=== PATIENT | female | born 1980 ===

== ENCOUNTER 2017-09-12 09:07 | Emergency (ER) | payer OTHER ==
[2017-09-12 09:59] VITALS: BMI 23.1
[2017-09-12 10:02] VITALS: RESP 16; O2SAT 100
[2017-09-12] MEDS ORDERED: Sodium Chloride 0.9% 1,000 ML IV STA (10:23)
[2017-09-12 10:59] LABS: ALT/SGPT 33 U/L (9-52); AST/SGOT 18 U/L (14-36); BLOOD UREA NITROGEN 10 mg/dl (7-17); GFR AFRICAN-AMERICAN > 60; GFR NON-AFRICAN AMERICAN > 60
[2017-09-12 11:05] LABS: BASO % 0.4 % (0.0-2.0); EOS # 0.1 K/uL (0.0-0.7); EOS % 1.7 % (0.0-4.0); HEMOGLOBIN 13.5 g/dL (12.0-16.0); LYMPH # 1.1 K/uL (1.0-4.3); LYMPH % 27.4 % (20.0-40.0); MEAN CELL VOLUME 88.3 fl (81.0-99.0); MEAN CORPUSCULAR HEMOGLOBIN 30.1 pg (27.0-31.0); MEAN CORPUSCULAR HGB CONC 34.1 g/dL (33.0-37.0); MEAN PLATELET VOLUME 7.4 fl (7.2-11.7); MONO # 0.5 K/uL (0.0-0.8); MONO % 11.5 % (0.0-10.0); NEUT # 2.4 K/uL (1.8-7.0); NRBC % 0.1 % (0.0-0.0); RBC 4.47 Mil/uL (3.80-5.20); RED CELL DISTRIBUTION WIDTH 13.2 % (11.5-14.5); WHITE BLOOD COUNT 4.1 K/uL (4.8-10.8)
[2017-09-12 11:35] LABS: SQUAMOUS EPITHIAL 5 /hpf (0-5); URINE BILIRUBIN NEGATIVE (NEGATIVE); URINE BLOOD SMALL (NEGATIVE); URINE CLARITY SLIGHTY-CLOUDY (Clear); URINE COLOR YELLOW (YELLOW); URINE GLUCOSE (UA) NEG (Normal); URINE LEUKOCYTE ESTERASE NEG Leu/uL (Negative); URINE PROTEIN NEGATIVE (NEGATIVE); URINE UROBILINOGEN 0.2-1.0 mg/dL (0.2-1.0)
[2017-09-12] MEDS ORDERED: Oxycodone/Acetaminophen 5/325 mg Tab PO STA (13:47)
[2017-09-12] MEDS ORDERED: Oxycodone/Acetaminophen 5/325 mg Tab ONE (13:52)
--- NOTE | 2017-09-12 14:12 | US ---
HISTORY: sudden onset L pelvic pain r/o torsion ; LMP 09/10/2017. COMPARISON: None available. TECHNIQUE: Transabdominal and transvaginal pelvic ultrasound was performed with longitudinal and transverse images submitted for interpretation. FINDINGS: UTERUS: Measures 4.8 x 4.6 x 5.5 cm. Uterus is anteverted without focal myometrial mass appreciable. ENDOMETRIUM: Measures 6.1 mm in diameter. Fluid is identified within the endometrial cavity relatively diffusely mid and a or minimal volume overall. No definitive cyst or solid mass is seen related to the endometrium. CERVIX: No cervical abnormality identified. RIGHT OVARY: Measures 2.3 x 1.4 x 2.5 cm. No solid mass. Normal flow. LEFT OVARY: Measures 4.3 x 3.3 x 4.3 cm. No solid mass. Normal flow. A moderate simple cyst is avascular measuring 2.9 x 2.2 x 3.7 cm with a few small follicles otherwise seen at the left ovary. FREE FLUID: No significant free fluid noted. OTHER FINDINGS: None. IMPRESSION: Fluid is seen in the endometrial cavity suspicious for potential chronic hemorrhage or other sonolucent fluid. Endometrial cavity is otherwise unremarkable. No myometrial mass. 3.7 cm simple cyst left ovary. Follow-up transvaginal probe also recommended in 48 weeks for follow-up. No sonographic pattern to suggest torsion.
--- NOTE | 2017-09-12 14:16 | ED PDOC ---
HPI: Abdomen Time Seen by Provider: 09/12/17 09:22 Chief Complaint (Nursing): Abdominal Pain Chief Complaint (Provider): pelvic pain History/Exam Limitations: no limitations Onset/Duration Of Symptoms: Sudden Onset Current Symptoms Are (Timing): Better Severity: Moderate Location Of Pain/Discomfort: LLQ Quality Of Discomfort: Sharp, Cramping Associated Symptoms: Nausea, Loss Of Appetite, Back Pain. denies: Vomiting, Diarrhea Exacerbating Factors: None Alleviating Factors: None Last Bowel Movement: Today Additional Complaint(s): 37yo female states was getting ready to go for a run when she had sudden onset left lower pelvic pain radiating to the back. Pain sharp, severe associated w nausea no fever, urinary symptoms, vaginal discharge or dizziness/syncope. Had one prior episode of similar pain months prior self resolved. 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 In relationship w female. LMP current. Past Medical History Reviewed: Historical Data, Nursing Documentation, Vital Signs Vital Signs: Last Vital Signs Temp 98.0 F 09/12/17 09:59 Pulse 70 09/12/17 09:59 Resp 16 09/12/17 09:59 BP Pulse Ox 100 09/12/17 14:16 - Medical History PMH: No Chronic Diseases - Surgical History Surgical History: No Surg Hx - Family History Family History: States: Unknown Family Hx - Social History Current smoker - smoking cessation education provided: No - Home Medications Home Medications: Ambulatory Orders Medication Instructions Recorded Naproxen [Naprosyn] 500 mg PO BID PRN #14 tablet 09/12/17 oxyCODONE/Acetaminophen [Percocet 1 ea PO Q6 PRN #5 tab 09/12/17 5/325 mg Tab] - Allergies Allergies/Adverse Reactions: Allergies Allergy/AdvReac Type Severity Reaction Status Date / Time No Known Allergies Allergy Verified 09/12/17 09:59 Review of Systems ROS Statement: Except As Marked, All Systems Reviewed And Found Negative Constitutional: Negative for: Fever Cardiovascular: Negative for: Chest Pain Respiratory: Negative for: Cough, Shortness of Breath Gastrointestinal: Positive for: Nausea, Abdominal Pain Genitourinary Female: Positive for: Pelvic Pain. Negative for: Dysuria, Incontinence, Vaginal Discharge, Vaginal Bleeding Musculoskeletal: Positive for: Back Pain. Negative for: Neck Pain, Arm Pain, Leg Pain Skin: Negative for: Rash, Lesions, Jaundice Neurological: Negative for: Weakness, Numbness, Headache, Dizziness Psych: Negative for: Suicidal ideation Physical Exam - Reviewed Nursing Documentation Reviewed: Yes Vital Signs Reviewed: Yes - Physical Exam Appears: Positive for: Well, Non-toxic, No Acute Distress Head Exam: Positive for: ATRAUMATIC, NORMAL INSPECTION, NORMOCEPHALIC Skin: Positive for: Normal Color, Warm, DRY Eye Exam: Positive for: EOMI, Normal appearance, PERRL ENT: Positive for: Normal ENT Inspection Neck: Positive for: Normal, Painless ROM Cardiovascular/Chest: Positive for: Regular Rate, Rhythm Respiratory: Positive for: CNT, Normal Breath Sounds Gastrointestinal/Abdominal: Positive for: Soft, Tenderness (LLQ tenderness). Negative for: Distended, Rebound, Asicites Back: Positive for: Normal Inspection Extremity: Positive for: Normal ROM Neurologic/Psych: Positive for: Alert, Oriented - Laboratory Results Result Diagrams: 09/12/17 10:43 09/12/17 10:43 Urine POC: Negative - ECG O2 Sat by Pulse Oximetry: 100 Pulse Ox Interpretation: Normal Medical Decision Making Medical Decision Making: Accession No. : [id number] Patient Name / ID : PERLA BARBOSA / [id number] Exam Date : 09/12/2017 12:12:34 ( Approved ) Study Comment : Sex / Age : F / 37Y Creator : Kyle Jenkins MD Dictator : Kyle Jenkins MD Color Grinder : Tube Skiver : Kyle Jenkins MD Approver2 : Report Date : 09/12/2017 14:10:40 My Comment : HISTORY: sudden onset L pelvic pain r/o torsion ; LMP 09/10/2017. COMPARISON: None available. TECHNIQUE: Transabdominal and transvaginal pelvic ultrasound was performed with longitudinal and transverse images submitted for interpretation. FINDINGS: UTERUS: Measures 4.8 x 4.6 x 5.5 cm. Uterus is anteverted without focal myometrial mass appreciable. ENDOMETRIUM: Measures 6.1 mm in diameter. Fluid is identified within the endometrial cavity relatively diffusely mid and a or minimal volume overall. No definitive cyst or solid mass is seen related to the endometrium. CERVIX: No cervical abnormality identified. RIGHT OVARY: Measures 2.3 x 1.4 x 2.5 cm. No solid mass. Normal flow. LEFT OVARY: Measures 4.3 x 3.3 x 4.3 cm. No solid mass. Normal flow. A moderate simple cyst is avascular measuring 2.9 x 2.2 x 3.7 cm with a few small follicles otherwise seen at the left ovary. FREE FLUID: No significant free fluid noted. OTHER FINDINGS: None. IMPRESSION: Fluid is seen in the endometrial cavity suspicious for potential chronic hemorrhage or other sonolucent fluid. Endometrial cavity is otherwise unremarkable. No myometrial mass. 3.7 cm simple cyst left ovary. Follow-up transvaginal probe also recommended in 48 weeks for follow-up. No sonographic pattern to suggest torsion. Results explained in detail. Feels better in ED, pain subsiding. Explained risks of tosion or intermittent torsion, needs to return ED for any worsr or return of pain. 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 Pelvic rest for now. Offered CT scan to r/o other pelvic or abdominal abnormality but she declined stating radiating avoidance. Disposition - Clinical Impression Clinical Impression: Ovarian cyst, Pelvic pain - Patient ED Disposition Is Patient to be Admitted: No Counseled Patient/Family Regarding: Studies Performed, Diagnosis, Rx Given - Disposition Referrals: Kyle Rossi DO [Staff Provider] - Disposition: Routine/Home Disposition Time: 14:01 Condition: STABLE Additional Instructions: Followup with your OIL PROSPECTING OBSERVER doctor in 5-7 days for re-evaluation. Return to ER for any worse or new symptoms, pain, or any concern. Take pain medicine only as needed. There is addictive potential with percocet, use minimally and safely discard if do not need. Prescriptions: Naproxen [Naprosyn] 500 mg PO BID PRN #14 tablet PRN Reason: Pain, Moderate (4-7) oxyCODONE/Acetaminophen [Percocet 5/325 mg Tab] 1 ea PO Q6 PRN #5 tab PRN Reason: Pain, Severe (8-10) Instructions: Ovarian Cysts, Acute Pelvic Pain (DC) Forms: [employer] (Malawian)
[2017-09-12 14:46] VITALS: BP 125/79; PULSE 85; TEMP 97.8
== END 2017-09-12 14:47 | disposition home or self-care (01) ==
LOC: H.ER 09:07
DX: N83.202 Unspecified ovarian cyst, left side (principal)
CPT/HCPCS: 76830; 76856; 80053; 81003; 81025; 85025; 96374; 99284; J1885; J7040

== ENCOUNTER 2018-04-15 15:09 | Emergency (ER) | payer OTHER ==
[2018-04-15 15:09] VITALS: BMI 23.1
[2018-04-15 15:30] VITALS: BP 108/70; PULSE 66; RESP 18; TEMP 98; O2SAT 99
--- NOTE | 2018-04-15 16:10 | ED PDOC ---
Upper Extremity Pain/Injury Time Seen by Provider: 04/15/18 15:35 Chief Complaint (Nursing): Finger,Hand,&Wrist Chief Complaint (Provider): Finger,Hand,&Wrist History Per: Patient History/Exam Limitations: no limitations Onset/Duration Of Symptoms: Days (x 2) Current Symptoms Are (Timing): Still Present Quality: "Pain" Additional Complaint(s): 37 year old female presents to the ED with a right hand injury that occurred two days ago while the patient was kickboxing. She notes moderate pain but is able to move hand and fingers. Offers no other complaints. PMD: none Past Medical History Reviewed: Historical Data, Nursing Documentation, Vital Signs Vital Signs: Last Vital Signs Temp 98 F 04/15/18 15:28 Pulse 66 04/15/18 15:28 Resp 18 04/15/18 15:28 BP 108/70 04/15/18 15:28 Pulse Ox 99 04/15/18 15:28 - Medical History PMH: No Chronic Diseases - Surgical History Surgical History: No Surg Hx - Family History Family History: States: Unknown Family Hx - Home Medications Home Medications: Ambulatory Orders Medication Instructions Recorded Naproxen [Naprosyn] 500 mg PO BID PRN #14 tablet 09/12/17 oxyCODONE/Acetaminophen [Percocet 1 ea PO Q6 PRN #5 tab 09/12/17 5/325 mg Tab] Ibuprofen [Motrin] 600 mg PO Q8 PRN #21 tab 04/15/18 - Allergies Allergies/Adverse Reactions: Allergies Allergy/AdvReac Type Severity Reaction Status Date / Time No Known Allergies Allergy Verified 09/12/17 09:59 Review of Systems ROS Statement: Except As Marked, All Systems Reviewed And Found Negative Musculoskeletal: Positive for: Hand Pain (right hand; 4th and 5th digits along with swelling ) Physical Exam - Reviewed Nursing Documentation Reviewed: Yes Vital Signs Reviewed: Yes - Physical Exam Appears: Positive for: No Acute Distress Head Exam: Positive for: ATRAUMATIC, NORMAL INSPECTION, NORMOCEPHALIC Skin: Positive for: Normal Color, Warm, Dry Eye Exam: Positive for: EOMI, Normal appearance, PERRL Extremity: Positive for: Normal ROM, Swelling (moderate pain and swelling to dorsum of right hand), Other (pain and ecchymosis noted to 4th and 5th MCPs) Neurologic/Psych: Positive for: Alert, Oriented. Negative for: Motor/Sensory Deficits - ECG O2 Sat by Pulse Oximetry: 99 (RA) Pulse Ox Interpretation: Normal - Progress ED Course And Treament: xry of hand: no fx Placed in metacarpal splint. Medical Decision Making Medical Decision Makin:47 Initial Plan: --Right hand x-ray --Motrin 600 mg PO Scribe Attestation: Documented by Lilliam Bailey, acting as a scribe for Antwon Sandoval PA-C Provider Scribe Attestation: All medical record entries made by the Scribe were at my direction and per sonally dictated by me. I have reviewed the chart and agree that the record accurately reflects my personal performance of the history, physical exam, medical decision making, and the department course for this patient. I have also personally directed, reviewed, and agree with the discharge instructions and disposition. Disposition - Clinical Impression Clinical Impression: Contusion of hand, right - Patient ED Disposition Is Patient to be Admitted: No - Disposition Referrals: Connor Palmer MD [Medical Doctor] - Disposition: Routine/Home Disposition Time: 16:42 Condition: FAIR Prescriptions: Ibuprofen [Motrin] 600 mg PO Q8 PRN #21 tab PRN Reason: Pain, Moderate (4-7) Instructions: Contusion (DC) Forms: [facility] ED School/Work Excuse Print Language: CZECH
--- NOTE | 2018-04-15 17:22 | RAD ---
PROCEDURE: Right Hand Radiographs. HISTORY: hand injury COMPARISON: None. FINDINGS: BONES: Normal. No fracture. JOINTS: Normal. No osteoarthritic changes. SOFT TISSUES: Normal. OTHER FINDINGS: None. IMPRESSION: Normal right hand radiographs.
== END 2018-04-15 16:58 | disposition home or self-care (01) ==
LOC: H.ER 15:09
DX: S60.221A Contusion of right hand, initial encounter (principal); W22.8XXA Striking against or struck by other objects, initial encounter; Y92.89 Other specified places as the place of occurrence of the external cause

== ENCOUNTER 2018-09-06 09:46 | Emergency (ER) | payer SELFPAY ==
[2018-09-06 09:50] VITALS: BMI 25.6
--- NOTE | 2018-09-06 10:39 | ED PDOC ---
HPI: Abdomen Time Seen by Provider: 09/06/18 10:16 Chief Complaint (Nursing): Abdominal Pain Chief Complaint (Provider): Abdominal pain History Per: Patient History/Exam Limitations: no limitations Additional Complaint(s): Pt reports LLQ pain X 1 day, constant, no radiation, on day 5 of menses. Had similar pain few weeks ago, resolved on its own. Denies fever, nausea, vomiting, constipation, diarrhea, vaginal discharge. Did not take pain medication at home. Past Medical History Reviewed: Nursing Documentation, Vital Signs Vital Signs: Last Vital Signs Temp 98.6 F 09/06/18 09:50 Pulse 76 09/06/18 09:50 Resp 20 09/06/18 09:50 BP 124/82 09/06/18 09:50 Pulse Ox 99 09/06/18 09:50 - Medical History PMH: No Chronic Diseases - Surgical History Surgical History: No Surg Hx - Family History Family History: States: Unknown Family Hx - Living Arrangements Living Arrangements: With Family - Social History Current smoker - smoking cessation education provided: No Alcohol: None - Home Medications Home Medications: Ambulatory Orders Medication Instructions Recorded Naproxen [Naprosyn] 500 mg PO BID PRN #15 tablet 09/06/18 - Allergies Allergies/Adverse Reactions: Allergies Allergy/AdvReac Type Severity Reaction Status Date / Time No Known Allergies Allergy Verified 09/12/17 09:59 Review of Systems Constitutional: Negative for: Fever, Chills Gastrointestinal: Positive for: Abdominal Pain. Negative for: Nausea, Vomiting, Diarrhea Genitourinary Female: Positive for: Vaginal Bleeding. Negative for: Dysuria, Hematuria, Vaginal Discharge Musculoskeletal: Negative for: Back Pain Skin: Negative for: Rash Neurological: Negative for: Headache Physical Exam - Reviewed Nursing Documentation Reviewed: Yes Vital Signs Reviewed: Yes - Physical Exam Appears: Positive for: Uncomfortable Skin: Positive for: Normal Color, Warm, Dry Eye Exam: Positive for: Normal appearance, EOMI, PERRL Cardiovascular/Chest: Positive for: Regular Rate, Rhythm Respiratory: Positive for: Normal Breath Sounds Gastrointestinal/Abdominal: Positive for: Bowel Sounds, Soft, Tenderness (LLQ ). Negative for: Guarding, Rebound Back: Positive for: Normal Inspection. Negative for: L CVA Tenderness, R CVA Tenderness Extremity: Positive for: Normal ROM Neurological/Psych: Positive for: Awake, Alert, Oriented - Laboratory Results Result Diagrams: 09/06/18 10:50 09/06/18 10:50 - ECG O2 Sat by Pulse Oximetry: 99 Medical Decision Making Medical Decision Makin yo female with LLQ pain. - labs - pelvic ultrasound - Morph[facility] Accession No. : [id number] Patient Name / ID : PERLA BARBOSA / [id number] Exam Date : 09/06/2018 11:16:25 ( Approved ) Study Comment : Sex / Age : F / 37Y Creator : Khris Saldivar MD Dictator : Khris Saldivar MD Home Care Manager Rn : Pickling Drum Operator : Khris Saldivar MD Approver2 : Report Date : 09/06/2018 13:18:13 My Comment : Date of service: 09/06/2018 HISTORY: Left lower quadrant pain. LMP 09/02/2018. Cycles are regular. COMPARISON: 09/12/2017. Pelvic ultrasound. TECHNIQUE: FINDINGS: UTERUS: Measures cm. Normal in size and appearance. No fibroid or other mass lesion seen. ENDOMETRIUM: Measures 5.2 mm in diameter. No ultrasound findings to suggest gestational sac, fluid, debris, mass or polyp or other pathologic process within the endometrium. CERVIX: No cervical abnormality identified.Incidental finding: Nabothian cysts the largest measures less than 1 cm. RIGHT OVARY: Measures 2.3 x 3.7 x 3.5 cm. No solid mass. Normal flow. Multiple subcentimeter follicles. LEFT OVARY: Measures 1.6 x 3.1 x 3.3 cm. No solid mass. Normal flow. FREE FLUID: No significant free fluid noted. OTHER FINDINGS: None. IMPRESSION: No significant or acute findings to account for/ related to the clinical presentation. Additional benign and/or incidental findings described above. Accession No. : [id number] Patient Name / ID : PERLA BARBOSA / [id number] Exam Date : 09/06/2018 14:49:34 ( Approved ) Study Comment : Sex / Age : F / 37Y Creator : Kyle Jenkins MD Dictator : Kyle Jenkins MD Home Care Manager Rn : Pickling Drum Operator : Kyle Jenkins MD Approver2 : Report Date : 09/06/2018 15:20:29 My Comment : Date of service: 09/06/2018 PROCEDURE: CT Abdomen and Pelvis with contrast HISTORY: LLQ pain COMPARISON: None. TECHNIQUE: Following the intravenous administration of iodinated contrast material, a CT examination of the abdomen and pelvis was performed from the domes of the diaphragms to the symphysis pubis with reformatted datasets provided in axial, sagittal and coronal planes. Oral contrast was not administered as per referring physician request. Contrast dose: Omnipaque 300, 100 cc Radiation dose: Total exam DLP = 384.82 mGy-cm. This CT exam was performed using one or more of the following dose reduction techniques: Automated exposure control, adjustment of the mA and/or kV according to patient size, and/or use of iterative reconstruction technique. FINDINGS: LOWER THORAX: Unremarkable. LIVER: Diminished attenuation throughout the liver is appreciated compatible with hepatic steatosis. Liver also appears upper limits normal size. No mass identified. Mild prominence of the common hepatic duct up to 9 mm caliber. GALLBLADDER AND BILE DUCTS: Limits normal caliber proximal common bile duct measuring 6.5 mm are otherwise diminishing at mid and distal segments. No radiodense choledocholithiasis. PANCREAS: Unremarkable. No gross lesion or ductal dilatation. SPLEEN: Unremarkable. ADRENALS: Unremarkable. No mass. KIDNEYS AND URETERS: Unremarkable. No hydronephrosis. No solid mass. VASCULATURE: Unremarkable. No aortic aneurysm. No aortic atherosclerotic calcification or mural plaque present. BOWEL: [id number] fecal loading in the right hemicolon, mild otherwise throughout the remainder of the large bowel. No definite suspicious small bowel findings. Infrequent left colonic diverticula. There is an adequate distention of the sigmoid colon. Evaluation the mural thickness is limited. No pericolic reaction or fluid collection to suggest diverticulitis grossly. No bowel obstruction. APPENDIX: No CT evidence of appendicitis. PERITONEUM: Trace fluid is seen in the cul-de-sac. LYMPH NODES: Unremarkable. No enlarged lymph nodes. BLADDER: Unremarkable. REPRODUCTIVE: Tiny left adnexal cyst noted, proximal 1 cm greatest dimension, with reproducti ve organs otherwise unremarkable appearing. BONES: No acute fracture. OTHER FINDINGS: None. IMPRESSION: 1. Limited sigmoid diverticula identified without overt diverticulitis pattern. The sigmoid segment is not fully distended and evaluation the wall thickness is limited. No pericolic reaction or fluid collection appreciable. 2. Tiny left adnexal cyst approximately 1 cm. Trace fluid noted cul-de-sac 3. Hepatic steatosis. Copy of labs and imaging given to patient. Disposition - Clinical Impression Clinical Impression: Abdominal pain in female, Adnexal cyst - Disposition Disposition: Routine/Home Disposition Time: 15:30 Condition: STABLE Additional Instructions: FOLLOW-UP WITH OB-PRODUCTION MAINTENANCE TECHNICIAN WITHIN 2 DAYS FOR REEVALUATION. Prescriptions: Naproxen [Naprosyn] 500 mg PO BID PRN #15 tablet PRN Reason: Pain, Moderate (4-7) Instructions: Acute Abdomen (Belly Pain) Forms: [employer] (Maori)
[2018-09-06 10:56] LABS: BASO % 0.7 % (0.0-2.0); EOS % 1.2 % (0.0-4.0); HEMOGLOBIN 12.7 g/dL (12.0-16.0); LYMPH # 1.1 K/uL (1.0-4.3); LYMPH % 37.5 % (20.0-40.0); MEAN CELL VOLUME 89.6 fl (81.0-99.0); MEAN CORPUSCULAR HEMOGLOBIN 29.9 pg (27.0-31.0); MEAN CORPUSCULAR HGB CONC 33.4 g/dL (33.0-37.0); MEAN PLATELET VOLUME 7.3 fl (7.2-11.7); MONO # 0.3 K/uL (0.0-0.8); MONO % 10.2 % (0.0-10.0); NEUT # 1.5 K/uL (1.8-7.0); NEUT % 50.4 % (50.0-75.0); NRBC % 0.1 % (0.0-0.0); RBC 4.25 Mil/uL (3.80-5.20); RED CELL DISTRIBUTION WIDTH 13.1 % (11.5-14.5)
[2018-09-06 11:00] LABS: PROTHROMBIN TIME 11.1 Seconds (9.8-13.1)
[2018-09-06 11:02] LABS: PARTIAL THROMBOPLASTIN TIME 34.1 Seconds (25.6-37.1)
[2018-09-06 11:03] LABS: SQUAMOUS EPITHIAL 9 /hpf (0-5); URINE BACTERIA RARE (<OCC); URINE BILIRUBIN NEGATIVE (NEGATIVE); URINE BLOOD LARGE (NEGATIVE); URINE CLARITY SLIGHTY-CLOUDY (Clear); URINE COLOR YELLOW (YELLOW); URINE GLUCOSE (UA) NEG (NEGATIVE); URINE LEUKOCYTE ESTERASE NEG Leu/uL (Negative); URINE PROTEIN NEGATIVE (NEGATIVE); URINE UROBILINOGEN 0.2-1.0 mg/dL (0.2-1.0)
[2018-09-06 11:27] LABS: ALB/GLOB RATIO 1.2 (1.0-2.1); ALBUMIN 4.1 g/dL (3.5-5.0); ALT/SGPT 27 U/L (9-52); AST/SGOT 17 U/L (14-36); BLOOD UREA NITROGEN 11 mg/dl (7-17); CALCIUM 9.1 mg/dL (8.4-10.2); GFR NON-AFRICAN AMERICAN > 60
--- NOTE | 2018-09-06 13:21 | US ---
Date of service: 09/06/2018 HISTORY: Left lower quadrant pain. LMP 09/02/2018. Cycles are regular. COMPARISON: 09/12/2017. Pelvic ultrasound. TECHNIQUE: FINDINGS: UTERUS: Measures cm. Normal in size and appearance. No fibroid or other mass lesion seen. ENDOMETRIUM: Measures 5.2 mm in diameter. No ultrasound findings to suggest gestational sac, fluid, debris, mass or polyp or other pathologic process within the endometrium. CERVIX: No cervical abnormality identified.Incidental finding: Nabothian cysts the largest measures less than 1 cm. RIGHT OVARY: Measures 2.3 x 3.7 x 3.5 cm. No solid mass. Normal flow. Multiple subcentimeter follicles. LEFT OVARY: Measures 1.6 x 3.1 x 3.3 cm. No solid mass. Normal flow. FREE FLUID: No significant free fluid noted. OTHER FINDINGS: None. IMPRESSION: No significant or acute findings to account for/ related to the clinical presentation. Additional benign and/or incidental findings described above.
[2018-09-06] MEDS ORDERED: Sodium Chloride 0.9% 50 ML IV ONE (14:41)
[2018-09-06] MEDS ORDERED: Iohexol 300 100 ML IJ ONE (14:41)
--- NOTE | 2018-09-06 15:23 | CT ---
Date of service: 09/06/2018 PROCEDURE: CT Abdomen and Pelvis with contrast HISTORY: LLQ pain COMPARISON: None. TECHNIQUE: Following the intravenous administration of iodinated contrast material, a CT examination of the abdomen and pelvis was performed from the domes of the diaphragms to the symphysis pubis with reformatted datasets provided in axial, sagittal and coronal planes. Oral contrast was not administered as per referring physician request. Contrast dose: Omnipaque 300, 100 cc Radiation dose: Total exam DLP = 384.82 mGy-cm. This CT exam was performed using one or more of the following dose reduction techniques: Automated exposure control, adjustment of the mA and/or kV according to patient size, and/or use of iterative reconstruction technique. FINDINGS: LOWER THORAX: Unremarkable. LIVER: Diminished attenuation throughout the liver is appreciated compatible with hepatic steatosis. Liver also appears upper limits normal size. No mass identified. Mild prominence of the common hepatic duct up to 9 mm caliber. GALLBLADDER AND BILE DUCTS: Limits normal caliber proximal common bile duct measuring 6.5 mm are otherwise diminishing at mid and distal segments. No radiodense choledocholithiasis. PANCREAS: Unremarkable. No gross lesion or ductal dilatation. SPLEEN: Unremarkable. ADRENALS: Unremarkable. No mass. KIDNEYS AND URETERS: Unremarkable. No hydronephrosis. No solid mass. VASCULATURE: Unremarkable. No aortic aneurysm. No aortic atherosclerotic calcification or mural plaque present. BOWEL: [id number] fecal loading in the right hemicolon, mild otherwise throughout the remainder of the large bowel. No definite suspicious small bowel findings. Infrequent left colonic diverticula. There is an adequate distention of the sigmoid colon. Evaluation the mural thickness is limited. No pericolic reaction or fluid collection to suggest diverticulitis grossly. No bowel obstruction. APPENDIX: No CT evidence of appendicitis. PERITONEUM: Trace fluid is seen in the cul-de-sac. LYMPH NODES: Unremarkable. No enlarged lymph nodes. BLADDER: Unremarkable. REPRODUCTIVE: Tiny left adnexal cyst noted, proximal 1 cm greatest dimension, with reproductive organs otherwise unremarkable appearing. BONES: No acute fracture. OTHER FINDINGS: None. IMPRESSION: 1. Limited sigmoid diverticula identified without overt diverticulitis pattern. The sigmoid segment is not fully distended and evaluation the wall thickness is limited. No pericolic reaction or fluid collection appreciable. 2. Tiny left adnexal cyst approximately 1 cm. Trace fluid noted cul-de-sac 3. Hepatic steatosis.
[2018-09-06 16:04] VITALS: BP 126/78; PULSE 78; RESP 19; TEMP 97.8
[2018-09-08 08:24] VITALS: O2SAT 99
== END 2018-09-06 16:04 | disposition home or self-care (01) ==
LOC: H.ER 09:46
DX: N83.8 Other noninflammatory disorders of ovary, fallopian tube and broad ligament (principal); K57.30 Diverticulosis of large intestine without perforation or abscess without bleeding; K76.0 Fatty (change of) liver, not elsewhere classified
CPT/HCPCS: 74177; 76830; 80053; 81003; 81025; 85025; 85610; 85730; 99282; J2270; Q9967